=== PATIENT | male | born 2005 | race Caucasian/White ===

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

== ENCOUNTER 2023-12-01 18:22 | Inpatient (IN) | payer OTHER ==
[~2023-12-01] VITALS: Ht 177.8 cm; Wt 77.1 kg
[2023-12-01 18:32] VITALS: BP 130/70
[2023-12-01] MEDS ORDERED: IOHEXOL 300 MG/ML 100 ML VIAL IV ONE (18:55)
[2023-12-01 18:58] LABS: BASO % 0.3 % (0.0-1.0); EOS # 0.1 10*3/uL (0.0-0.4); EOS % 0.6 % (1.0-4.0); HEMATOCRIT 41.7 % (42.0-52.0); LYMPH # 1.7 10*3/uL (1.3-4.4); LYMPH % 14.5 % (27.0-41.0); MEAN CELL VOLUME 93.5 fl (80.0-94.0); MEAN CORPUSCULAR HGB 31.2 pg (27.0-31.0); MEAN CORPUSCULAR HGB CONC 33.3 g/dl (33.0-37.0); MEAN PLATELET VOLUME 11.5 fl (9.6-12.3); MONO # 0.6 10*3/uL (0.1-1.0); MONO % 4.8 % (3.0-9.0); NEUT # 9.4 10*3/uL (2.3-7.9); NEUT % 79.5 % (47.0-73.0); PLATELET COUNT AUTOMATED 205 10*3/uL (130-400); RED BLOOD COUNT 4.46 10*6/uL (4.50-5.90); RED CELL DISTRI WIDTH 11.9 % (0-14.5); WHITE BLOOD COUNT 11.8 10*3/uL (4.8-10.8)
[2023-12-01 19:02] LABS: BILIRUBIN Negative (Negative); BLOOD Negative (Negative); CLARITY Clear (Clear); COLOR Yellow (Yellow); GLUCOSE Negative (Negative); KETONE Negative (Negative); LEUKO ESTERASE Negative (Negative); NITRITE Negative (Negative)
[2023-12-01 19:15] LABS: ALKALINE PHOSPHATASE 71 U/L (46-116); BUN 11 mg/dl (9-23); CHLORIDE 107 mmol/L (98-107); LIPASE 27 U/L (12-53); POTASSIUM 3.9 mmol/L (3.4-5.1); SGPT/ALT 22 U/L (5-49); TOTAL PROTEIN 7.3 gm/dL (6.0-8.0)
[2023-12-01] MEDS ORDERED: Ketorolac Tromethamine 30 MG/ML VIAL IV ONE (21:50)
[2023-12-01] MEDS ORDERED: Piperacillin Sodium/Tazobact 50 ML IV ONE (21:50)
[2023-12-01 21:52] VITALS: BP 128/70
[2023-12-01] MEDS ORDERED: Magnesium Hydroxide 30 ML UDC PO PRN (22:20)
[2023-12-01] MEDS ORDERED: BISACODYL 10 MG SUPP R PRN (22:20)
[2023-12-01] MEDS ORDERED: ACETAMINOPHEN 650 MG SUPP R PRN (22:20)
[2023-12-01] MEDS ORDERED: BISACODYL 5 MG TAB PO PRN (22:20)
[2023-12-01] MEDS ORDERED: TEMAZEPAM 15 MG CAP PO PRN (22:20)
[2023-12-01] MEDS ORDERED: MORPHINE Sulfate 2 MG/ML SYR IV PRN (22:20)
[2023-12-01] MEDS ORDERED: ACETAMINOPHEN 325 MG TAB PO PRN (22:20)
[2023-12-01] MEDS ORDERED: Ondansetron Hydrochloride 4 MG/2 ML VIAL IV PRN (22:20)
[2023-12-01] MEDS ORDERED: ceFAZolin sodium/sodium chlor 20 ML IV SCH (22:30)
[2023-12-01] MEDS ORDERED: METRONIDAZOLE 100 ML IV ONE (22:30)
[2023-12-02] VITALS (8 sets, daily range): BP systolic 112–138; BP diastolic 60–85
[2023-12-02] MEDS ORDERED: Lactated Ringer's Solution 1,000 ML IV ONE ×2 (00:06→03:10)
[2023-12-02] MEDS ORDERED: ceFAZolin sodium/sodium chlor 20 ML IV ONE (00:06)
[2023-12-02] MEDS ORDERED: BUPIVACAINE 0.5% 30 ML IV ONE (01:33)
[2023-12-02] MEDS ORDERED: Piperacillin Sodium/Tazobact 50 ML IV SCH (04:00)
[2023-12-02] MEDS ORDERED: Pantoprazole Sodium 40 MG VIAL IV SCH (06:00)
[2023-12-02 07:00] LABS: HEMATOCRIT 42.7 % (42.0-52.0); MEAN CELL VOLUME 93.4 fl (80.0-94.0); MEAN CORPUSCULAR HGB 31.1 pg (27.0-31.0); MEAN CORPUSCULAR HGB CONC 33.3 g/dl (33.0-37.0); MEAN PLATELET VOLUME 11.5 fl (9.6-12.3); PLATELET COUNT AUTOMATED 172 10*3/uL (130-400); RED BLOOD COUNT 4.57 10*6/uL (4.50-5.90); WHITE BLOOD COUNT 10.9 10*3/uL (4.8-10.8)
[2023-12-02 07:04] LABS: MANUAL DIFF REFLEX YES
[2023-12-02 07:33] LABS: ALKALINE PHOSPHATASE 75 U/L (46-116); BUN 8 mg/dl (9-23); CHLORIDE 106 mmol/L (98-107); CHOLESTEROL 131 mg/dL (<200); FREE T4 1.33 ng/dl (0.89-1.76); LDL CHOLESTEROL 77 mg/dL (9-159); POTASSIUM 3.7 mmol/L (3.4-5.1); SGPT/ALT 21 U/L (5-49); TOTAL PROTEIN 7.4 gm/dL (6.0-8.0); TRIGLYCERIDES 40 mg/dl (<150)
[2023-12-02 08:13] LABS: PLATELET SUFFICIENCY NORMAL (NORMAL); TOTAL CELLS COUNTED 100 #CELLS
[2023-12-02] MEDS ORDERED: Enoxaparin Sodium 40 MG/0.4 ML SYR SC SCH (10:00)
[2023-12-02] MEDS ORDERED: Ondansetron4 MG PO (11:00)
[2023-12-02] MEDS ORDERED: HYDROCODONE-AC1 EAC1 PO (11:00)
[2023-12-02] MEDS ORDERED: ROCURONIUM BROMIDE 50 MG/5 ML SYRINGE IV ONE (16:42)
[2023-12-02] MEDS ORDERED: Ketorolac Tromethamine 30 MG/ML VIAL IV ONE (16:42)
[2023-12-02] MEDS ORDERED: Ondansetron Hydrochloride 4 MG/2 ML VIAL IV ONE (16:42)
[2023-12-02] MEDS ORDERED: fentaNYL CITRATE 100 MCG/2 ML VIAL IV ONE (16:42)
[2023-12-02] MEDS ORDERED: Dexamethasone Sodium Phospha 4 MG/ML VIAL IV ONE (16:42)
[2023-12-02] MEDS ORDERED: ATROPINE SULFATE 0.4 MG/ML VIAL IV ONE (16:42)
[2023-12-02] MEDS ORDERED: PROPOFOL 200 MG/20 ML VIAL IV ONE (16:42)
[2023-12-02] MEDS ORDERED: SUGAMMADEX SODIUM 200 MG/2 ML VIAL IV ONE (16:42)
[2023-12-02] MEDS ORDERED: Midazolam Hydrochloride 2 MG/2 ML VIAL IV ONE (16:42)
[2023-12-02] MEDS ORDERED: Succinylcholine Chloride 200 MG/10 ML SYRINGE IV ONE (16:42)
[2023-12-02] MEDS ORDERED: Lidocaine Hydrochloride 5 ML VIAL IV ONE (16:42)
== END 2023-12-02 11:21 | disposition home or self-care (01) | DRG 234 ==
LOC: ED 18:22 → EDHOLD 22:13
PROVIDERS: Physician Assistant Medical; Student in an Organized Health Care Education/Training Program; ADMIT Internal Medicine; ATTEND Internal Medicine
PROC: 0DTJ4ZZ Resection of Appendix, Percutaneous Endoscopic Approach (ICD-10-PCS; principal; 2023-12-02)
DX: K35.890 Other acute appendicitis without perforation or gangrene (principal); F17.200 Nicotine dependence, unspecified, uncomplicated; D64.9 Anemia, unspecified; E80.6 Other disorders of bilirubin metabolism; F12.10 Cannabis abuse, uncomplicated

== ENCOUNTER 2024-04-29 13:46 | Emergency (ER) | payer OTHER ==
[~2024-04-29] VITALS: Ht 177.8 cm; Wt 68.0 kg
[~2024-04-29 13:46] MED LIST changes: +HYDROCODONE-AC1 EAC1 PO; +Ondansetron4 MG PO
[2024-04-29] MEDS ORDERED: MEDROL DOSEPAK4 MG PO (14:10)
[2024-04-29] MEDS ORDERED: GOOD NEIGHBOR L10 MG PO (14:10)
== END 2024-04-29 14:23 | disposition home or self-care (01) ==
LOC: ED 13:46
DX: H65.92 Unspecified nonsuppurative otitis media, left ear (principal); F12.90 Cannabis use, unspecified, uncomplicated; Z90.89 Acquired absence of other organs; Z98.890 Other specified postprocedural states; Z90.49 Acquired absence of other specified parts of digestive tract